=== PATIENT | male | born 1960 | race Caucasian/White ===

== ENCOUNTER 2018-10-25 22:10 | Emergency (ER) | payer MEDICAID, OTHER ==
[~2018-10-25] VITALS: Wt 79.9 kg
[~2018-10-25 22:10] MED LIST: IBUP-1542 PO; IBUP-1561 PO; OSEL75CA23 PO; PSEU120T12 PO
[2018-10-25 22:13] VITALS: BP 144/83; PULSE 87; RESP 20
--- NOTE | 2018-10-26 01:06 | ERD ---
ER Documentation Chief Complaint Chief Complaint LEFT INDEX FINGER SUPERFICIAL UNK LAST TDAP HPI This is a 58-year-old male who presents here in the emergency department with complaints of left hand, base of left index finger laceration. Stated that this happened around 10 AM today while he was at work, drilling a wood and tight metal. Patient is right-handed. Does not know his last tetanus shot. Not on any blood thinners. Denies headache, head injury, loss of consciousness, dizziness, neck pain, neck stiffness, throat pain, difficulty swallowing, difficulty breathing lying flat, shoulder pain, chest pain, back pain, abdominal pain, nausea, vomiting, constipation, diarrhea, urinary symptoms, loss of bowel and bladder control, difficulty walking due to pain, numbness or tingling sensation, calf pain, recent travel, recent major surgery in the last 3 weeks, calf pain, recent long travel, recent exposure to any illness, recent antibiotic use in the last 3 months, fever, chills, seizures. Past medical history: Surgical history: Social: Denies smoking, use of alcoholic beverages, use of illegal drugs. ROS All systems reviewed and are negative except as per history of present illness. Medications Home Meds Active Scripts Ibuprofen* (Motrin*) 400 Mg Tab, 400 MG PO Q6, #20 TAB Prov:DARREL CARRILLO PA-C 06/27/15 Pseudoephedrine Hcl (Sudafed 12 Hour) 120 Mg Tablet.sa, 120 MG PO BID for 5 Days Prov:RU TAYLOR NP 06/25/15 Ibuprofen* (Motrin*) 600 Mg Tab, 600 MG PO Q6, #30 TAB Prov:RU TAYLOR NP 06/25/15 Oseltamivir Phosphate* (Tamiflu*) 75 Mg Capsule, 75 MG PO BID for 5 Days, CAP Prov:RU TAYLOR NP 06/25/15 Allergies Allergies: Coded Allergies: No Known Allergy (Unverified , 06/25/15) PMhx/Soc History of Surgery: Yes (EAR TUBES) Anesthesia Reaction: No Hx Neurological Disorder: No Hx Respiratory Disorders: No Hx Cardiac Disorders: No Hx Psychiatric Problems: No Hx Miscellaneous Medical Probl: No Hx Alcohol Use: No Hx Substance Use: No Hx Tobacco Use: No Physical Exam Vitals Physical Exam Const: No acute distress Head: Atraumatic Eyes: Normal Conjunctiva ENT: Normal External Ears, Nose and Mouth. Neck: Full range of motion. No meningismus. Resp: Clear to auscultation bilaterally Cardio: Regular rate and rhythm, no murmurs Abd: Soft, non tender, non distended. Normal bowel sounds Skin: No petechiae or rashes Back: No midline or flank tenderness Ext: No cyanosis, or edema. Left hand: Base of left index finger, MCP/medial area has a laceration measuring approximately 2 cm in length. Very low suspicion of tendon injury. Neur: Awake and alert. No neurological deficits. Psych: Normal Mood and Affect Results 24 hrs Current Medications Medications Dose Sig/Ildefonso Start Time Status Last (Trade) Ordered Route PRN Stop Time Admin Dose Reason Admin Diphtheria/ 0.5 ml ONCE ONCE 10/26/18 DC 10/26/18 Tetanus/Acell IM* 01:30 01:20 Pertussis 10/26/18 01:31 (Adacel) Lidocaine 20 ml ONCE ONCE 10/26/18 DC (Xylocaine SC 01:30 1% (Mdv) 20 10/26/18 01:31 ml) 1 tab ONCE ONCE 10/26/18 DC 10/26/18 Acetaminophen PO 01:30 01:20 / 10/26/18 01:31 Hydrocodone Bitart (Neoga ()) Procedures/MDM Diagnostic tests: X-ray of the left hand: 2 punctate 1 mm densities projecting within the soft tissues adjacent to the second MCP joint on the frontal view, possibly a tiny foreign bodies. This case was discussed with my supervising physician, Dr. Diaz Lopez who recommended for me to give lidocaine subcu to area, irrigate the wound with saline (high pressure) x1 L, then do another x-ray of the hand. X-ray of the left hand: No evidence of residual foreign body. Treatment: Adacel IM. Neoga p.o. Procedure: Laceration repair to left hand. Betadine prepped. Lidocaine 1% 2 cc subcu. Copious/pressure irrigation with saline and Betadine. Wound was explored. I was about to do the laceration repair when I found out that patient eloped at around 5:40 AM. Called his number [phone]. Unable to leave message. Voicemail was not set up yet. Departure Diagnosis: Primary Impression: Eloped from emergency department Additional Impression: Hand laceration Condition: Fair PASILABAN,KLAR F October 26, 2018 01:06
[2018-10-26] MEDS ORDERED: DIPHTH/TET/ACEL PERTUSS (ADULT) 0.5 ML VIAL IM* ONE (01:30)
[2018-10-26] MEDS ORDERED: HYDROCODONE/APAP (10/325) TAB PO ONE (01:30)
[2018-10-26] MEDS ORDERED: LIDOCAINE 1% (MDV) 20 ML INJ SC ONE (01:30)
== END 2018-10-26 06:40 | disposition left against medical advice (07) ==
LOC: FTE 22:10
DX: S61.211A Laceration without foreign body of left index finger without damage to nail, initial encounter (principal); X58.XXXA Exposure to other specified factors, initial encounter; Y92.89 Other specified places as the place of occurrence of the external cause; Z23 Encounter for immunization
CPT/HCPCS: 90471; 90715